=== PATIENT | male | born 1985 | race Caucasian/White ===

== ENCOUNTER → 2017-05-31 | Emergency (ER) | payer BC ==
[~2017-05-31] VITALS: Ht 175.3 cm; Wt 63.5 kg
[~2017-05-31] MED LIST: CITALOPRAM HBR10 MG PO; CLARITIN10 MG PO
== END ==
LOC: ED 00:02
DX: R11.2 Nausea with vomiting, unspecified (principal); R19.7 Diarrhea, unspecified; R06.02 Shortness of breath; Z72.89 Other problems related to lifestyle; F17.200 Nicotine dependence, unspecified, uncomplicated; Z79.899 Other long term (current) drug therapy
CPT/HCPCS: 80053; 81001; 85025; 96374; 99283; J2405; J7030